=== PATIENT | male | born 1995 | race Caucasian/White ===

== ENCOUNTER 2018-07-04 13:42 | Emergency (ER) | payer BC, SELFPAY ==
[2018-07-04] MEDS ORDERED: Dexamethasone 4 mg/ml Vial ONE (13:53)
[2018-07-04] MEDS ORDERED: Ibuprofen 200 MG TAB ONE (13:53)
== END 2018-07-04 14:01 | disposition home or self-care (01) ==
LOC: BURERS 13:42
DX: T63.441A Toxic effect of venom of bees, accidental (unintentional), initial encounter (principal); F17.210 Nicotine dependence, cigarettes, uncomplicated
CPT/HCPCS: 99282; J1100

== ENCOUNTER 2019-10-06 19:33 | Emergency (ER) | payer BC ==
[2019-10-06] MEDS ORDERED: Morphine 4 MG/ML VIAL ONE (20:05)
[2019-10-06 20:31] LABS: ALT (SGPT) 15 U/L (8-55); AST (SGOT) 24 U/L (5-34); Albumin 4.7 g/dL (3.5-5.0); Alkaline Phosphatase 83 U/L (40-110); Anion Gap 14 mmol/L (10-20); BUN (Urea Nitrogen) 16 mg/dL (8.9-20.6); Bilirubin, Total 0.4 mg/dL (0.2-1.2); Calc. Creatinine Clearance 0 mL/min (70-130); Calcium 9.9 mg/dL (7.8-10.44); Carbon Dioxide 26 mmol/L (22-29); Chloride 106 mmol/L (98-107); Estimated GFR-MDRD Greater than 90; Globulin 2.2 g/dL (2.4-3.5); Glucose 83 mg/dL (70-105); Potassium 3.9 mmol/L (3.5-5.1); Protein, Total 6.9 g/dL (6.0-8.3); Sodium 142 mmol/L (136-145)
[2019-10-06 20:33] LABS: Hemoglobin 16.2 g/dL (14.0-18.0); Lymphocytes 22 % (21-51); MDiff Complete? YES; Mean Corpuscular HGB CONC 33.2 g/dL (32.0-36.0); Mean Corpuscular Hemoglobin 29.7 pg (27.0-31.0); Mean Corpuscular Volume 89.7 fL (78.0-98.0); Mean Platelet Volume 6.1 fL (7.4-10.4); Monocytes 4 % (0-10); Neutrophil 74 % (42-75); Platelet Count 222 thou/uL (130-400); Prothrombin Time 13.4 SEC (12.0-14.7); RBC Distribution Width 11.3 % (11.5-14.5); Red Blood Cell (RBC) Count 5.43 mill/uL (4.70-6.10); White Blood Cell (WBC) Count 8.8 thou/uL (4.8-10.8)
--- NOTE | 2019-10-06 21:11 | CT ---
CT CHEST, ABDOMEN AND PELVIS WITH CONTRAST: 10/06/[address] of the chest, abdomen and pelvis was done after injecting IV contrast. Axial slices were ac quired followed by coronal and sagittal reconstructions. CT of the thorax shows clear lungs with no sign of contusion, infiltrate, or effusion. The mediastinu m appears normal with no sign of hematoma. There is no sign of pericardial effusion. The patient's ri bs appeared intact. No fractures were detected in them or the thoracic spine. CT of the abdomen showed an intact liver, spleen, pancreas, gallbladder, kidneys, and abdominal aorta . There may be a tiny subcentimeter cyst in the left kidney. A low density rim seen anterior to the l iver is felt to be the diaphragm and is not of the density consistent with acute hematoma. There is n o sign of laceration or hematoma of any organ parenchyma. No free air or free fluid was noted. There is abundance of food and fluid in the stomach. Abundant st ool is seen in the colon. There is no evidence of hilda obstruction. The lumbar spine and bony pelvis appear intact. No pelvic masses, fluid collections, or other acute t raumatic changes were detected. IMPRESSION: No acute findings in the chest, abdomen or pelvis. Findings called to ER at 2058 on 10/06/19. POS: HOME
== END 2019-10-06 21:30 | disposition home or self-care (01) ==
LOC: BURERS 19:33
DX: S20.211A Contusion of right front wall of thorax, initial encounter (principal); F17.210 Nicotine dependence, cigarettes, uncomplicated; W20.8XXA Other cause of strike by thrown, projected or falling object, initial encounter
CPT/HCPCS: 71260; 74177; 80053; 85025; 85610; 96374; J2270

== ENCOUNTER 2021-03-12 17:03 | Emergency (ER) | payer SELFPAY ==
[2021-03-12] MEDS ORDERED: Bacitracin 1 PK ONE (17:33)
[2021-03-12] MEDS ORDERED: Boostrix 0.5 ML (Tdap) VIAL ONE (17:33)
[2021-03-12] MEDS ORDERED: Ketorolac Tromethamine 30 MG/ML VIAL ONE ×2 (18:04→18:08)
== END 2021-03-12 18:30 | disposition home or self-care (01) ==
LOC: BURERS 17:03
DX: S67.191A Crushing injury of left index finger, initial encounter (principal); S60.122A Contusion of left index finger with damage to nail, initial encounter; F17.210 Nicotine dependence, cigarettes, uncomplicated; Z23 Encounter for immunization
CPT/HCPCS: 90471; 90715; 96372; J1885